=== PATIENT | female | born 1995 | race Two or more races ===

== ENCOUNTER 2019-07-05 19:20 | Emergency (ER) | payer SELFPAY ==
[~2019-07-05] VITALS: Ht 152.4 cm; Wt 72.6 kg
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
[2019-07-05 19:30] VITALS: BP 102/70
[2019-07-05] MEDS ORDERED: Acetaminophen 500mg (ES) tab ORAL ONE (20:15)
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
[2019-07-05] MEDS ORDERED: IBUPROFEN600 MG ORAL (21:07)
[2019-07-05] MEDS ORDERED: ROBAXIN-750750 MG PO (21:07)
--- NOTE | 2019-07-05 21:10 | Diagnostic Imaging Report ---
EXAM: XR Right Knee, 3 views CLINICAL HISTORY: PAIN TECHNIQUE: Three views of the right knee. COMPARISON: No relevant prior studies available. FINDINGS: Bones/joints: Unremarkable. No acute fracture. No dislocation. Soft tissues: Unremarkable. IMPRESSION: Normal right knee x-rays.
[2019-07-05 21:15] VITALS: BP 115/73
--- NOTE | 2019-07-05 21:15 | NUR ---
ER DISCHARGE NOTE: Patient is cleared to be discharged per ERMD, pt is aox4, on room air, with stable vital signs. pt was given dc and prescription instructions, pt was able to verbalize understanding, pt id band removed without complications. pt is able to ambulate with steady gait. pt took all belongings.
== END 2019-07-05 21:15 | disposition home or self-care (01) ==
LOC: EMR 21:00
DX: S16.1XXA Strain of muscle, fascia and tendon at neck level, initial encounter (principal); M54.9 Dorsalgia, unspecified; M62.830 Muscle spasm of back; S63.641A Sprain of metacarpophalangeal joint of right thumb, initial encounter; M25.561 Pain in right knee; V43.52XA Car driver injured in collision with other type car in traffic accident, initial encounter; Y92.410 Unspecified street and highway as the place of occurrence of the external cause
CPT/HCPCS: 99283